=== PATIENT | female | born 1975 | race African-American/Black ===

== ENCOUNTER 2018-10-23 23:18 | Emergency (ER) | payer OTHER ==
[~2018-10-23] VITALS: Ht 157.5 cm; Wt 80.3 kg
[2018-10-23 23:26] VITALS: BP 178/99
[2018-10-24] MEDS ORDERED: predniSONE 20 MG TABLET ONE (02:40)
[2018-10-24] MEDS: predniSONE 20 MG TABLET PO ONE (02:46)
[2018-10-24 02:55] LABS: APPEARANCE,URINE Clear (CLEAR); BILIRUBIN,URINE Negative (NEGATIVE); BLOOD, URINE Negative Ery/uL (NEGATIVE); COLOR,URINE Yellow (YELLOW); KETONES,URINE Negative (NEGATIVE); LEUKOCYTE ESTERASE ,URINE Negative (NEGATIVE); NITRITE, URINE Negative (NEGATIVE); PH,URINE 6.5 (5.0-8.0); PROTEIN,URINE Negative (NEGATIVE); UGLUCOSE Negative (NEGATIVE); UROBILINOGEN,URINE 0.2 EU/dL (0.2)
[2018-10-24] MEDS ORDERED: IPRATROPIUM NEB FS 0.5 MG/2.5 ML AMPUL.NEB ONE (03:00)
[2018-10-24] MEDS ORDERED: ALBUTEROL FS 2.5 MG/3 ML VIAL.NEB ONE (03:00)
[2018-10-24] MEDS: ALBUTEROL FS 2.5 MG/3 ML VIAL.NEB CONTNEB ONE (03:06)
[2018-10-24] MEDS: IPRATROPIUM NEB FS 0.5 MG/2.5 ML AMPUL.NEB NEB ONE (03:06)
--- NOTE | 2018-10-24 03:24 | NUR ---
RT AT BESIDE.
== END 2018-10-24 03:32 | disposition home or self-care (01) ==
LOC: ER 23:21
DX: J30.81 Allergic rhinitis due to animal (cat) (dog) hair and dander (principal); J45.21 Mild intermittent asthma with (acute) exacerbation
CPT/HCPCS: 71046; 81001; 84703; 93005; 94640; 99284; J7512; 81000-TC